=== PATIENT | female | born 1985 | race African-American/Black ===

== ENCOUNTER 2017-11-13 13:32 | Emergency (ER) | payer MEDICAID, OTHER ==
[~2017-11-13] VITALS: Ht 167.6 cm; Wt 60.0 kg
[2017-11-13] MEDS ORDERED: VISCOUS LIDOCAINE 2% 15 ML UDC MM ONE (15:15)
[2017-11-13] MEDS ORDERED: DIPHENHYDRAMINE 12.5MG/5ML UDC PO ONE (15:15)
[2017-11-13] MEDS ORDERED: FAMOTIDINE 20MG/2ML VIAL IV ONE (15:15)
[2017-11-13] MEDS ORDERED: ONDANSETRON HCL 4MG/2ML VIAL IV ONE (15:30)
[2017-11-13] MEDS ORDERED: EPINEPHRINE 1:1000 1 MG/ML AMP IM ONE (15:30)
[2017-11-13 17:30] VITALS: BP 130/63
== END 2017-11-13 18:01 | disposition home or self-care (01) ==
LOC: ER 13:48
DX: T78.05XA Anaphylactic reaction due to tree nuts and seeds, initial encounter (principal); Y93.89 Activity, other specified; Y92.89 Other specified places as the place of occurrence of the external cause; Y99.0 Civilian activity done for income or pay; Z91.018 Allergy to other foods
CPT/HCPCS: 96372; 96374; 96375; 99291; J2405; J3490; Z7610; Q0163